=== PATIENT | female | born 2000 | race Two or more races ===

== ENCOUNTER 2023-07-14 19:39 | Outpatient (REF) | payer OTHER, SELFPAY ==
[2023-07-19 19:07] LABS: Age Gdln ACOG Testing Note (.); IGP, rfx Aptima HPV ASCU Note (.)
== END 2023-07-14 19:40 | disposition home or self-care (01) ==
LOC: LAB 19:39
PROVIDERS: Visit Provider Obstetrics & Gynecology
DX: Z01.419 Encounter for gynecological examination (general) (routine) without abnormal findings (principal)
CPT/HCPCS: G0145

== ENCOUNTER 2024-07-27 14:57 | Outpatient (REF) | payer OTHER, SELFPAY ==
[2024-08-01 08:09] LABS: Age Gdln ACOG Testing Note (.); IGP, rfx Aptima HPV ASCU Note (.)
== END 2024-07-27 14:58 | disposition home or self-care (01) ==
LOC: LAB 14:57
PROVIDERS: Visit Provider Obstetrics & Gynecology
DX: Z01.419 Encounter for gynecological examination (general) (routine) without abnormal findings (principal)
CPT/HCPCS: 88175